=== PATIENT | male | born 1975 ===

== ENCOUNTER 2018-11-04 19:15 | Emergency (ER) | payer SELFPAY ==
[2018-11-04 19:29] VITALS: BP 130/86; PULSE 59; RESP 16; TEMP 98.1; O2SAT 97
[2018-11-04] MEDS ORDERED: Naproxen 500 MG TAB PO STA (20:02)
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
[2018-11-04] MEDS ORDERED: Naproxen 500 MG TAB PO ONE (20:51)
--- NOTE | 2018-11-05 10:31 | RAD ---
Date of service: 11/04/2018 PROCEDURE: Right Knee Radiographs. HISTORY: RIGHT KNEE INJURY COMPARISON: None. TECHNIQUE: 2 views obtained. FINDINGS: BONES: No visible fracture. Calcification at the quadriceps tendon insertion site, a normal variant. JOINTS: Normal. No osteoarthritis. JOINT EFFUSION: None. OTHER FINDINGS: Prepatellar and suprapatellar soft tissue swelling. IMPRESSION: Soft tissue swelling without acute articular or osseous abnormality.
--- NOTE | 2018-11-05 11:40 | CT ---
Date of service: 11/04/2018 PROCEDURE: CT right knee HISTORY: KNEE INJURY COMPARISON: Not available TECHNIQUE: 2.5 mm contiguous axial sections were acquired through the right knee. Sagittal and coronal images were reformatted from the axial scan. Total exam DLP: 281.17 mGy-cm This CT exam was performed using 1 or more of the following dose reduction techniques: Automated exposure control, adjustment of the mA and/or kV according to patient size, and/or use of iterative reconstruction technique. FINDINGS: There is no acute fracture. There are several small sclerotic lesions about the knee, most likely small benign bone islands. These are seen in the posterior aspect of the lateral and medial distal femur and in the anterior medial distal femur. There is no lytic osseous lesion identified. There are no articular erosions. There is mild narrowing of the medial joint compartment with mild subchondral sclerosis of the medial tibial plateau consistent with osteoarthritis. The patellofemoral articulation shows mild narrowing with subchondral sclerosis of the medial femoral articular facet. There is no joint effusion. There is a prepatellar bursal effusion noted. No other soft tissue abnormality is appreciated. IMPRESSION: Prepatellar bursitis. Mild medial and patellofemoral osteoarthritis. Several small benign bone islands. The preliminary findings for this examination were reported by [facility] at 9:16 p.m. on 11/04/2018. There is concurrence of this report with the preliminary findings.
== END 2018-11-04 21:58 | disposition home or self-care (01) ==
LOC: H.ER 19:15
DX: M70.41 Prepatellar bursitis, right knee (principal)